=== PATIENT | male | born 1975 | race Caucasian/White ===

== ENCOUNTER 2017-03-29 11:20 | Emergency (ER) | payer MEDICAID, OTHER ==
[2017-03-29 11:38] VITALS: BP 129/88
--- NOTE | 2017-03-29 11:57 | EDM.PDOC ---
ED HPI GENERAL MEDICAL PROBLEM - General Chief Complaint: Skin Complaint Stated Complaint: RASH ALL OVER Time Seen by Provider: 03/29/17 11:30 Source of Information: Reports: Patient History Limitations: Reports: No Limitations - History of Present Illness INITIAL COMMENTS - FREE TEXT/NARRATIVE: Sore throat, hard to swallow for past 3 days. Unsure of fever. Ibuprofen will help for 'just a little bit' after taking. Also a fine, red rash on the arms and trunk for the same time period. No sick contacts or exposure to strep pt is aware of. Mild stomach upset from ibuprofen. Duration: Waxing/Waning Location: Reports: Neck, Abdomen, Upper Extremity, Left, Upper Extremity, Right Improves with: Reports: Medication Associated Symptoms: Reports: Cough, Headaches, Rash - Related Data Allergies Allergy/AdvReac Type Severity Reaction Status Date / Time Penicillins Allergy Abdominal Verified 03/29/17 11:32 Pain Home Meds: Home Meds NK [No Known Home Meds] 03/29/17 [History] Past Medical History - Past Health History Medical/Surgical History: Denies Medical/Surgical History Social & Family History - Tobacco Use Smoking Status *Q: Current Every Day Smoker Years of Tobacco use: 22 Packs/Tins Daily: 0.1 ED ROS GENERAL - Review of Systems Review Of Systems: ROS reveals no pertinent complaints other than HPI. ED EXAM, SKIN/RASH Exam: See Below Exam Limited By: No Limitations General Appearance: Alert, WD/WN, No Apparent Distress Ears: Normal External Exam, Normal Canal, Hearing Grossly Normal, Normal TMs Nose: Normal Inspection, Normal Mucosa Throat/Mouth: Normal Lips, Normal Voice, Other (diffuse redness of the posterior oropharynx with petichae on the palate.) Head: Atraumatic Neck: Normal Inspection, Supple, Full Range of Motion, Lymphadenopathy (R), Lymphadenopathy (L) Respiratory/Chest: No Respiratory Distress, Lungs Clear, Normal Breath Sounds Cardiovascular: Regular Rate, Rhythm Back Exam: Full Range of Motion Extremities: Other (fine, red rough rash scattered from wrists to upper arms. ) Psychiatric: Normal Affect, Normal Mood Skin: Warm, Dry, Rash (as above on extremities and also present on back and abdomen.) Associated features: No: Warmth, Induration, Weeping Course - Vital Signs Last Recorded V/S: Last Vital Signs Temp 36.6 C 03/29/17 11:36 Pulse 80 03/29/17 11:36 Resp 14 03/29/17 11:36 BP 129/88 03/29/17 11:36 Pulse Ox 96 03/29/17 11:36 - Orders/Labs/Meds Orders: Active Orders 24 hr Category Date Time Status CULTURE STREP A CONFIRMATION [RM] Stat Lab 03/29/17 11:33 Results STREP SCRN A RAPID W CULT CONF [RM] Stat Lab 03/29/17 11:33 Results Departure - Departure Time of Disposition: 11:56 Disposition: Home, Self-Care 01 Condition: good Clinical Impression: Sore throat, Rash and nonspecific skin eruption - Discharge Information Instructions: Sore Throat, [id number] Referrals: PCP,None [Primary Care Provider] - Forms: ED Department Discharge Additional Instructions: 1. Strep culture is pending. You may use benadryl as needed for itching. 2. Zithromax 500mg by mouth daily, eat prior to taking. 3. Work excuse for 03/29/17 provided. 4. Followup as needed. - Problem List & Annotations (1) Rash and nonspecific skin eruption SNOMED Code(s): 390402155, 781886940 Code(s): R21 - RASH AND OTHER NONSPECIFIC SKIN ERUPTION Status: Acute Priority: Medium Current Visit: Yes (2) Sore throat SNOMED Code(s): 165100954 Code(s): J02.9 - ACUTE PHARYNGITIS, UNSPECIFIED Status: Acute Priority: Medium Current Visit: Yes - Problem List Review Problem List Initiated/Reviewed/Updated: Yes - My Orders Last 24 Hours: My Active Orders 03/29/17 11:33 CULTURE STREP A CONFIRMATION [RM] Stat STREP SCRN A RAPID W CULT CONF [RM] Stat - Assessment/Plan Last 24 Hours: My Active Orders 03/29/17 11:33 CULTURE STREP A CONFIRMATION [RM] Stat STREP SCRN A RAPID W CULT CONF [RM] Stat
== END 2017-03-29 12:08 | disposition home or self-care (01) ==
LOC: JP.ED 11:20
DX: J02.9 Acute pharyngitis, unspecified (principal); R21 Rash and other nonspecific skin eruption; F17.210 Nicotine dependence, cigarettes, uncomplicated; Z88.0 Allergy status to penicillin
CPT/HCPCS: 87081; 87430; 99283

== ENCOUNTER 2017-05-03 16:06 | Emergency (ER) | payer MEDICAID, OTHER ==
[2017-05-03 16:50] VITALS: BP 138/84
--- NOTE | 2017-05-03 18:03 | EDM.PDOC ---
ED HPI GENERAL MEDICAL PROBLEM - General Chief Complaint: Skin Complaint Stated Complaint: RASH Time Seen by Provider: 05/03/17 16:56 Source of Information: Reports: Patient, RN Notes Reviewed History Limitations: Reports: No Limitations - History of Present Illness INITIAL COMMENTS - FREE TEXT/NARRATIVE: 42-year-old gentleman presents emergency department today with concern of a rash he has had of the rash in varying degrees over the last month or so initially did have a sore throat that has resolved has had fevers with night sweats over the last month or so the fevers have resolved within the last days. He did admit to unprotected intercourse anal with a male about a month and a half prior he does not have a primary care physician unknown HIV status. Also admits to having a sore inner aspect of his rectum he also states this has resolved denies any pain is discharge or ulcers on his penis denies Pain Score (Numeric/FACES): 0 - Related Data Allergies Allergy/AdvReac Type Severity Reaction Status Date / Time Penicillins Allergy Abdominal Verified 05/03/17 16:50 Pain Home Meds: Home Meds NK [No Known Home Meds] 03/29/17 [History] Past Medical History - Past Health History Medical/Surgical History: Denies Medical/Surgical History Social & Family History - Tobacco Use Smoking Status *Q: Current Every Day Smoker Years of Tobacco use: 20 Packs/Tins Daily: 1 - Recreational Drug Use Recreational Drug Use: No ED ROS GENERAL - Review of Systems Review Of Systems: See Below Constitutional: Reports: Fever, Chills, Night Sweats HEENT: Reports: No Symptoms Respiratory: Reports: No Symptoms Cardiovascular: Reports: No Symptoms GI/Abdominal: Reports: Other (Rectal sore no resolved) : Reports: No Symptoms Musculoskeletal: Reports: No Symptoms Skin: Reports: Rash Neurological: Reports: No Symptoms ED EXAM, SKIN/RASH Exam: See Below Exam Limited By: No Limitations General Appearance: Alert, WD/WN, No Apparent Distress Respiratory/Chest: No Respiratory Distress Skin: Warm, Dry, Rash, Other (Rashes viral-like in nature consistent with a viral exanthem there is no rash noted on the palmar surface of the hands or the soles of feet) Location, Skin: Chest, Abdomen, Back, Upper Extremity, Right, Upper Extremity, Left, Lower Extremity, Right, Lower Extremity, Left. No: Palms, Soles Characteristics: Macular, Patchy Course - Vital Signs Last Recorded V/S: Last Vital Signs Temp 99.3 F 05/03/17 16:49 Pulse 118 H 05/03/17 16:49 Resp 14 05/03/17 16:49 BP 138/84 05/03/17 16:49 Pulse Ox 98 05/03/17 16:49 - Orders/Labs/Meds Orders: Active Orders 24 hr Category Date Time Status CBC WITH AUTO DIFF [HEME] Urgent Lab 05/03/17 18:46 Ordered CHLAMYDIA,AND GC BY APTIMA Stat Lab 05/03/17 18:35 Received HEPATITIS PANEL,ACUTE [REF] Stat Lab 05/03/17 18:03 Received HIV 1/2 AB RFLX TO SUPPL [REF] Urgent Lab 05/03/17 18:34 Received RPR-TREP PALLIDIUM AB,REFLEX [REF] Stat Lab 05/03/17 18:03 Received Labs: Laboratory Tests 05/03/17 Range/Units 18:03 HIV-1 Ab Rapid Screen Non-reactive (NON-REACT.) Departure - Departure Time of Disposition: 18:47 Disposition: Home, Self-Care 01 Condition: Good Clinical Impression: Rash and nonspecific skin eruption - Discharge Information Forms: ED Department Discharge Additional Instructions: Please followup with your primary care provider in 5-7 days if not better, please call return to the emergency department with worsening of symptoms. - My Orders Last 24 Hours: My Active Orders 05/03/17 18:03 HEPATITIS PANEL,ACUTE [REF] Stat RPR-TREP PALLIDIUM AB,REFLEX [REF] Stat 05/03/17 18:34 HIV 1/2 AB RFLX TO SUPPL [REF] Urgent 05/03/17 18:35 CHLAMYDIA,AND GC BY APTIMA Stat 05/03/17 18:46 CBC WITH AUTO DIFF [HEME] Urgent - Assessment/Plan Last 24 Hours: My Active Orders 05/03/17 18:03 HEPATITIS PANEL,ACUTE [REF] Stat RPR-TREP PALLIDIUM AB,REFLEX [REF] Stat 05/03/17 18:34 HIV 1/2 AB RFLX TO SUPPL [REF] Urgent 05/03/17 18:35 CHLAMYDIA,AND GC BY APTIMA Stat 05/03/17 18:46 CBC WITH AUTO DIFF [HEME] Urgent Plan: Assessment Acuity = acute Site and laterality = nonspecific rash consistent with a viral exanthem complicated in a patient with history of unprotected male anal intercourse Etiology = unclear etiology Manifestations = rectal sore now resolved Location of injury = home Lab values = rapid HIV was negative, reflux HIV, hepatitis B and C, chlamydia and gonorrhea, syphilis all pending Plan Recommend establish primary care for further evaluation and treatment Patient was in agreement with the plan all questions were answered, they were instructed to return to the emergency department or call for worsening symptoms. This note was dictated using [employer] voice recognition software please call with any questions.
== END 2017-05-03 18:55 | disposition home or self-care (01) ==
LOC: JP.ED 16:06
DX: R21 Rash and other nonspecific skin eruption (principal); F17.210 Nicotine dependence, cigarettes, uncomplicated; Z88.0 Allergy status to penicillin
CPT/HCPCS: 36415; 80074; 85025; 86592; 86780; 87389; 87449; 87491; 87591; 99282; 99283

== ENCOUNTER 2018-08-11 18:19 | Emergency (ER) | payer SELFPAY ==
[2018-08-11 18:32] VITALS: BP 141/92
[2018-08-11] MEDS ORDERED: Cyclobenzaprine 10 MG Tab PO ONE (19:02)
[2018-08-11] MEDS ORDERED: Ketorolac 60 MG/2 ML SDV IM ONE (19:02)
[2018-08-11] MEDS ORDERED: Acetaminophen/oxyCODONE 325-5 MG Tab PO ONE (19:03)
--- NOTE | 2018-08-11 19:11 | EDM.PDOC ---
ED HPI GENERAL MEDICAL PROBLEM - General Chief Complaint: Back Pain or Injury Stated Complaint: BACK PAIN Time Seen by Provider: 08/11/18 19:05 Source of Information: Reports: Patient History Limitations: Reports: No Limitations - History of Present Illness INITIAL COMMENTS - FREE TEXT/NARRATIVE: pt arrived with pain in his lower back. He states this started about 1 month ago and it has gotten progrssively worse. Onset: Gradual, Other ( This has gotten progrssively worse. He does work at [employer] and he does do alot of lifting. ) Duration: Day(s):, Getting Worse Location: Reports: Back, Other (pt had no injury. ) Associated Symptoms: Reports: No Other Symptoms Lower Back Pain Score (Numeric/FACES): 10 - Related Data Allergies Allergy/AdvReac Type Severity Reaction Status Date / Time Penicillins Allergy Abdominal Verified 08/11/18 18:37 Pain Home Meds: Home Meds NK [No Known Home Meds] 03/29/17 [History] Past Medical History - Past Health History Medical/Surgical History: Denies Medical/Surgical History Musculoskeletal History: Reports: Back Pain, Chronic Psychiatric History: Reports: Anxiety, Depression - Infectious Disease History Infectious Disease History: Reports: Chicken Pox, Measles - Past Surgical History Head Surgeries/Procedures: Reports: None Musculoskeletal Surgical History: Reports: None Social & Family History - Tobacco Use Smoking Status *Q: Current Every Day Smoker Years of Tobacco use: 20 Packs/Tins Daily: 1 Used Tobacco, but Quit: No - Caffeine Use Caffeine Use: Reports: Energy Drinks, Tea - Recreational Drug Use Recreational Drug Use: Yes Drug Use in Last 12 Months: Yes Recreational Drug Type: Reports: Marijuana/Hashish Recreational Drug Use Frequency: Rarely ED ROS GENERAL - Review of Systems Review Of Systems: See Below Constitutional: Reports: No Symptoms HEENT: Reports: No Symptoms Respiratory: Reports: No Symptoms Cardiovascular: Reports: No Symptoms Endocrine: Reports: No Symptoms GI/Abdominal: Reports: No Symptoms : Reports: No Symptoms Musculoskeletal: Reports: Other (pain in lower ) Skin: Reports: No Symptoms ED EXAM,LOWER BACK PAIN/INJURY - Physical Exam Exam: See Below Text/Narrative:: pt arrived with pain in his lower back which has gradually gotten worse. 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 That change occured about 6 weeks ago. He began to have the pain about 1 month ago. Exam Limited By: No Limitations General Appearance: Alert, Anxious, Moderate Distress Ears: Normal TMs Nose: Normal Inspection Throat/Mouth: Normal Inspection Head: Atraumatic Neck: Normal Inspection Respiratory/Chest: No Respiratory Distress Cardiovascular: Regular Rate, Rhythm GI/Abdominal: Soft, Non-Tender (Male) Exam: Deferred Rectal (Males) Exam: Deferred Back Exam: Paraspinal Tenderness, Other (pt is tender in the paraspinous area in the lower back) Extremities: Normal Inspection Neurological: Alert, Oriented x 3 Psychiatric: Anxious Course - Vital Signs Last Recorded V/S: Last Vital Signs Temp 35.5 C 08/11/18 18:41 Pulse 68 08/11/18 18:41 Resp 16 08/11/18 18:41 BP 141/92 H 08/11/18 18:41 Pulse Ox 100 08/11/18 18:41 - Orders/Labs/Meds Orders: Active Orders 24 hr Category Date Time Status Lumbar Spine Min 4V [CR] Stat Exams 08/11/18 19:03 Taken Labs: Laboratory Tests 08/11/18 08/11/18 08/11/18 Range/Units 19:07 19:15 19:15 WBC 10.7 (4.5-11.0) K/uL RBC 5.07 (4.30-5.90) M/uL Hgb 15.2 H (12.0-15.0) g/dL Hct 44.3 (40.0-54.0) % MCV 87 (80-98) fL MCH 30 (27-31) pg MCHC 34 (32-36) % Plt Count 371 (150-400) K/uL Neut % (Auto) 49 (36-66) % Lymph % (Auto) 36 (24-44) % [place] % (Auto) 8 H (2-6) % Eos % (Auto) 6 H (2-4) % Baso % (Auto) 1 (0-1) % C-Reactive Protein 0.09 (0.0-0.3) mg/dL Urine Color Yellow Urine Appearance Clear Urine pH 6.0 (4.5-8.0) Ur Specific [place] 1.015 (1.008-1.030) Urine Protein Negative (NEGATIVE) mg/dL Urine Glucose (UA) Normal (NEGATIVE) mg/dL Urine Ketones Negative (NEGATIVE) mg/dL Urine Occult Blood Negative (NEGATIVE) Urine Nitrite Negative (NEGAITVE) Urine Bilirubin Negative (NEGATIVE) Urine Urobilinogen Normal (NORMAL) mg/dL Ur Leukocyte Esterase Negative (NEGATIVE) Urine RBC 0-5 (0-5) Urine WBC 0-5 (0-5) Ur Epithelial Cells Rare Amorphous Sediment Not seen Urine Bacteria Not seen Urine Mucus Not seen Meds: Medications Discontinued Medications Generic Name Dose Route Start Last Admin Trade Name Angela PRN Reason Stop Dose Admin Cyclobenzaprine HCl 10 mg 08/11/18 19:02 08/11/18 19:27 Flexeril PO 08/11/18 19:03 10 mg ONETIME ONE Administration Ketorolac Tromethamine 60 mg 08/11/18 19:02 08/11/18 19:28 Toradol IM 08/11/18 19:03 60 mg ONETIME ONE Administration Oxycodone/Acetaminophen 1 tab 08/11/18 19:03 08/11/18 19:27 Percocet 325-5 Mg PO 08/11/18 19:04 1 tab ONETIME ONE Administration - Re-Assessments/Exams Free Text/Narrative Re-Assessment/Exam: 08/11/18 20:09 xrays show good interspaces and good alignment. His lab work was normal. 08/11/18 20:17 he was given torodol 60mg im and percocet 5/325/ He is quite comfortable at this time. Departure - Departure Time of Disposition: 20:07 Disposition: Home, Self-Care 01 Condition: Fair Clinical Impression: Lumbar paraspinal muscle spasm - Discharge Information Instructions: Muscle Cramps and Spasms, [id number] Referrals: PCP,None [Primary Care Provider] - Forms: ED Department Discharge Care Plan Goals: soak in a tub, moist warm packs to the back, avoid lifting as much as possible, no work for 2 days, flexeril 10mg hs and 1/2 tab qam, tramodol 50mg q6h for pain. both tramodol and flexeril can cause drowiness. - My Orders Last 24 Hours: My Active Orders 08/11/18 19:03 Lumbar Spine Min 4V [CR] Stat - Assessment/Plan Last 24 Hours: My Active Orders 08/11/18 19:03 Lumbar Spine Min 4V [CR] Stat
--- NOTE | 2018-08-12 08:36 | CR ---
Lumbar Spine Min 4V CLINICAL HISTORY: Back pain FINDINGS: There are 5 lumbar-type vertebrae. The vertebral body heights are maintained. Disc spaces a re preserved. Alignment is maintained. IMPRESSION: No fracture or subluxation
== END 2018-08-11 20:40 | disposition home or self-care (01) ==
LOC: JP.ED 18:19
DX: M62.830 Muscle spasm of back (principal); F41.9 Anxiety disorder, unspecified; F32.9 Major depressive disorder, single episode, unspecified; F17.210 Nicotine dependence, cigarettes, uncomplicated; Z88.0 Allergy status to penicillin; Z79.899 Other long term (current) drug therapy
CPT/HCPCS: 36415; 72110; 81001; 85025; 86140; 96372; 99284; A9270; J1885

== ENCOUNTER 2018-11-27 23:59 | Emergency (ER) | payer MEDICAID, OTHER ==
[2018-11-28 00:36] VITALS: BP 143/87
--- NOTE | 2018-11-28 00:57 | EDM.PDOC ---
ED HPI GENERAL MEDICAL PROBLEM - General Chief Complaint: Back Pain or Injury Stated Complaint: BACK PAIN Time Seen by Provider: 11/28/18 00:35 Source of Information: Reports: Patient History Limitations: Reports: No Limitations - History of Present Illness INITIAL COMMENTS - FREE TEXT/NARRATIVE: 43-year-old male with thoracic and lower back tightness and pain for the past 4 days. No neurologic symptoms. No specific injury. He had similar discomfort several months ago and it resolved spontaneously. He thinks it has something to do with "stress". He is very sensitive to medications and when he takes ibuprofen it makes him sick. The medication he received several months ago worked appropriately Onset: Gradual Duration: Day(s): (4 days) back pain Pain Score (Numeric/FACES): 12 - Related Data Allergies Allergy/AdvReac Type Severity Reaction Status Date / Time Penicillins Allergy Abdominal Verified 11/28/18 00:25 Pain Home Meds: Home Meds NK [No Known Home Meds] 03/29/17 [History] Past Medical History - Past Health History Medical/Surgical History: Denies Medical/Surgical History Gastrointestinal History: Reports: GERD Musculoskeletal History: Reports: Back Pain, Chronic Psychiatric History: Reports: Anxiety, Depression - Infectious Disease History Infectious Disease History: Reports: Measles - Past Surgical History Head Surgeries/Procedures: Reports: None HEENT Surgical History: Reports: REINA Social & Family History - Tobacco Use Smoking Status *Q: Current Every Day Smoker Years of Tobacco use: 20 Packs/Tins Daily: 0.5 - Caffeine Use Caffeine Use: Reports: Coffee, Energy Drinks, Soda, Tea - Recreational Drug Use Recreational Drug Use: No ED ROS GENERAL - Review of Systems Review Of Systems: See Below Constitutional: Denies: Fever, Chills Respiratory: Denies: Shortness of Breath Cardiovascular: Denies: Chest Pain GI/Abdominal: Reports: Nausea. Denies: Abdominal Pain Skin: Reports: No Symptoms Neurological: Denies: Headache Psychiatric: Reports: No Symptoms ED EXAM,LOWER BACK PAIN/INJURY - Physical Exam Exam: See Below Exam Limited By: No Limitations General Appearance: Alert, No Apparent Distress Respiratory/Chest: No Respiratory Distress, Lungs Clear Cardiovascular: Regular Rate, Rhythm Back Exam: Paraspinal Tenderness (Patient has muscle tightness and paraspinal tenderness in the lower thoracic spine and lumbar area, no vertebral tenderness) Course - Vital Signs Last Recorded V/S: Last Vital Signs Temp 97.9 F 11/28/18 00:36 Pulse 66 11/28/18 00:36 Resp 16 11/28/18 00:36 BP 143/87 H 11/28/18 00:36 Pulse Ox 98 11/28/18 00:36 - Re-Assessments/Exams Free Text/Narrative Re-Assessment/Exam: 11/28/18 00:56 Reviewed his records and he was prescribed Flexeril and tramadol several months ago. He was given refills of these, #15 each and should increase activity as tolerated. Recheck next week if not improving satisfactorily. Departure - Departure Time of Disposition: 01:02 Disposition: Home, Self-Care 01 Condition: Good Clinical Impression: Lumbar paraspinal muscle spasm - Discharge Information Instructions: Back Pain, Adult, [id number] Referrals: PCP,None [Primary Care Provider] - Forms: ED Department Discharge Care Plan Goals: Use medications as directed and increase activity as tolerated. Recheck next week if not improving satisfactorily.
== END 2018-11-28 01:02 | disposition home or self-care (01) ==
LOC: JP.ED 23:59
DX: M62.830 Muscle spasm of back (principal); F17.210 Nicotine dependence, cigarettes, uncomplicated; Z88.0 Allergy status to penicillin
CPT/HCPCS: 99283

== ENCOUNTER 2019-12-12 16:11 | Emergency (ER) | payer SELFPAY ==
[2019-12-12 16:29] VITALS: BP 120/79; PULSE 100
--- NOTE | 2019-12-12 16:41 | EDM.PDOC ---
ED HPI GENERAL MEDICAL PROBLEM - General Chief Complaint: Skin Complaint Stated Complaint: RASH Time Seen by Provider: 12/12/19 16:25 Source of Information: Reports: Patient, RN History Limitations: Reports: No Limitations - History of Present Illness INITIAL COMMENTS - FREE TEXT/NARRATIVE: 44 yo male presents with a pruritic rash that has been getting worse over the past couple of days. No other sx's. No new meds. Does not have a family doctor. Has been taking topical Benedryl per his report without benefit. No one at his home has a rash. It started in his groin bilaterally and spread. 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) (see HPI) - Related Data Allergies Allergy/AdvReac Type Severity Reaction Status Date / Time Penicillins Allergy Abdominal Verified 12/12/19 16:21 Pain Home Meds: Home Meds NK [No Known Home Meds] 03/29/17 [History] Past Medical History - Past Health History Medical/Surgical History: Denies Medical/Surgical History Gastrointestinal History: Reports: GERD Musculoskeletal History: Reports: Back Pain, Chronic Psychiatric History: Reports: Anxiety, Depression - Infectious Disease History Infectious Disease History: Reports: Measles - Past Surgical History Head Surgeries/Procedures: Reports: None HEENT Surgical History: Reports: REINA Social & Family History - Tobacco Use Smoking Status *Q: Current Every Day Smoker Years of Tobacco use: 20 Packs/Tins Daily: 0.5 - Caffeine Use Caffeine Use: Reports: Coffee, Energy Drinks, Soda, Tea - Recreational Drug Use Recreational Drug Use: Yes Recreational Drug Type: Reports: Marijuana/Hashish Recreational Drug Use Frequency: Rarely ED ROS GENERAL - Review of Systems Review Of Systems: See Below Constitutional: Reports: No Symptoms HEENT: Reports: No Symptoms Respiratory: Reports: No Symptoms Cardiovascular: Reports: No Symptoms GI/Abdominal: Reports: No Symptoms : Reports: No Symptoms Musculoskeletal: Reports: No Symptoms Skin: Reports: Pruritis, Rash, Erythema. Denies: Bruising, Urticaria Neurological: Reports: No Symptoms ED EXAM, SKIN/RASH Exam: See Below Exam Limited By: No Limitations General Appearance: Alert, WD/WN, No Apparent Distress Eye Exam: Bilateral Eye: Normal Inspection Ears: Normal External Exam, Normal Canal, Hearing Grossly Normal Nose: Normal Inspection, No Blood Throat/Mouth: Normal Inspection, Normal Lips, Normal Oropharynx, Normal Voice, No Airway Compromise Head: Atraumatic, Normocephalic Neck: Normal Inspection, Non-Tender Respiratory/Chest: No Respiratory Distress, Lungs Clear, Normal Breath Sounds, No Accessory Muscle Use Cardiovascular: Regular Rate, Rhythm, No Edema Extremities: Normal Inspection Neurological: Alert, Oriented, CN II-XII Intact, Normal Cognition, No Motor/ Sensory Deficits Psychiatric: Normal Affect, Normal Mood Skin: Warm, Dry, Intact, Erythema, Rash (on extrems and groin, more confluent in groin. Small papules in various areas. Not hives. ) Location, Skin: Upper Extremity, Right, Upper Extremity, Left, Lower Extremity, Right, Lower Extremity, Left, Groin Characteristics: Papular, Fine, Erythematous. No: Linear, Lauar, Polycyclic, Vesicular, Bullous, Urticarial, Petechial, Necrotic Associated features: No: Warmth, Tenderness Course - Vital Signs Last Recorded V/S: Last Vital Signs Temp 36.6 C 12/12/19 16:22 Pulse 100 12/12/19 16:22 Resp 14 12/12/19 16:22 BP 120/79 12/12/19 16:22 Pulse Ox 100 12/12/19 16:22 Departure - Departure Time of Disposition: 16:42 Disposition: Home, Self-Care 01 Condition: Good Clinical Impression: Rash - Discharge Information *PRESCRIPTION DRUG MONITORING PROGRAM REVIEWED*: No *COPY OF PRESCRIPTION DRUG MONITORING REPORT IN PATIENT WILL: No Instructions: Rash Referrals: PCP,None [Primary Care Provider] - Additional Instructions: Take prednisone as directed until gone. Take diphenhydramine 50 mg every 6 hrs as needed for itching. Recheck in the clinic [facility]. Sepsis Event Note - Evaluation Sepsis Screening Result: No Definite Risk - Focused Exam Vital Signs: Vital Signs Temp Pulse Resp BP Pulse Ox 12/12/19 16:22 36.6 C 100 14 120/79 100 Date Exam was Performed: 12/12/19 Time Exam was Performed: 16:36
== END 2019-12-12 16:55 | disposition home or self-care (01) ==
LOC: JP.ED 16:11
DX: R21 Rash and other nonspecific skin eruption (principal); F17.210 Nicotine dependence, cigarettes, uncomplicated; Z88.0 Allergy status to penicillin
CPT/HCPCS: 99282; 99283

== ENCOUNTER 2020-01-12 22:18 | Emergency (ER) | payer MEDICAID ==
[2020-01-12 22:29] VITALS: BP 145/91; PULSE 107
--- NOTE | 2020-01-12 23:04 | EDM.PDOC ---
ED HPI GENERAL MEDICAL PROBLEM - General Chief Complaint: Skin Complaint Stated Complaint: RASH Time Seen by Provider: 01/12/20 22:45 Source of Information: Reports: Patient, Old Records, RN History Limitations: Reports: No Limitations - History of Present Illness INITIAL COMMENTS - FREE TEXT/NARRATIVE: 44 yo male presents with oral and penile/scrotal painful, somewhat itchy lesions. Says he was in the clinic and they told him it was scabies. He used the medication given and has not gotten better. Rather than return there when he didn't improve he comes to the ER. Has a pHx of syphilis in 05/03. Has had unprotected 'tran' sex recently before this all started. Onset: Gradual Duration: Week(s): (? 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) ("Scabies Medication") Groin Pain Score (Numeric/FACES): 4 - Related Data Allergies Allergy/AdvReac Type Severity Reaction Status Date / Time No Known Allergies Allergy Verified 01/12/20 22:33 Home Meds: Home Meds NK [No Known Home Meds] 01/12/20 [History] Past Medical History - Past Health History Medical/Surgical History: Denies Medical/Surgical History HEENT History: Reports: Glaucoma, Impaired Vision Gastrointestinal History: Reports: GERD Genitourinary History: Reports: STD Musculoskeletal History: Reports: Back Pain, Chronic Psychiatric History: Reports: Anxiety, Depression, OCD - Infectious Disease History Infectious Disease History: Reports: Chicken Pox - Past Surgical History Head Surgeries/Procedures: Reports: None HEENT Surgical History: Reports: LASIK Social & Family History - Tobacco Use Smoking Status *Q: Current Every Day Smoker Years of Tobacco use: 22 Packs/Tins Daily: 1 - Caffeine Use Caffeine Use: Reports: Coffee, Energy Drinks, Soda, Tea - Recreational Drug Use Recreational Drug Use: Yes Recreational Drug Type: Reports: Marijuana/Hashish Recreational Drug Use Frequency: Monthly Recreational Drug Last Use: 01/11/2020 ED ROS GENERAL - Review of Systems Review Of Systems: See Below Constitutional: Reports: No Symptoms HEENT: Reports: Other (oral ulcers on tongue and inner lower lip) Respiratory: Reports: No Symptoms Cardiovascular: Reports: No Symptoms GI/Abdominal: Reports: No Symptoms : Reports: Other (penile and scrotum lesions). Denies: Discharge Skin: Reports: Rash (ulcers on scrotum and penis), Lesions Neurological: Reports: No Symptoms ED EXAM, SKIN/RASH Exam: See Below Exam Limited By: No Limitations Eye Exam: Bilateral Eye: Normal Inspection Nose: Normal Inspection, No Blood Throat/Mouth: Other (ulcers on R lateral aspect of tongue and on mucosal surface of lower lip. ) Head: Atraumatic, Normocephalic Neck: Normal Inspection Skin: Warm, Dry, Other (multiple ulcerations on penis and scrotum. ) Location, Skin: Pelvis Characteristics: Other (ulcers) Associated features: Tenderness Course - Vital Signs Text/Narrative:: Got Rocephin 500 mg IM, Azithromycin 1000 mg po, and 2.4 million units of pen G benzathine IM Last Recorded V/S: Last Vital Signs Temp 36.7 C 01/12/20 22:36 Pulse 107 H 01/12/20 22:36 Resp 16 01/12/20 22:36 BP 145/91 H 01/12/20 22:36 Pulse Ox 98 01/12/20 22:36 - Orders/Labs/Meds Orders: Active Orders 24 hr Category Date Time Status CHLAMYDIA/GC AMPLIFICATION Routine Lab 01/12/20 23:20 Received PANEL [id number] (HIV AG/AB W RFX) Stat Lab 01/12/20 23:15 Received T PALLIDUM SCREENING CASCADE Routine Lab 01/12/20 23:15 Received Labs: Laboratory Tests 01/12/20 Range/Units 23:15 HIV-1 Ab Rapid Screen Reactive H (NON-REACT.) Meds: Medications Discontinued Medications Generic Name Dose Route Start Last Admin Trade Name Freq PRN Reason Stop Dose Admin Azithromycin 1,000 mg 01/12/20 23:25 Zithromax PO 01/12/20 23:26 ONETIME ONE Ceftriaxone Sodium 500 mg 01/12/20 23:26 Rocephin IM 01/12/20 23:27 ONETIME ONE Lidocaine HCl Confirm 01/12/20 23:30 Xylocaine-Mpf 1% Administered 01/12/20 23:31 Dose 5 ml .ROUTE .STK-MED ONE Penicillin G Benzathine 2.4 millunits 01/12/20 23:22 Bicillin L-A IM 01/12/20 23:23 ONETIME ONE Departure - Departure Time of Disposition: 23:57 Disposition: Home, Self-Care 01 Condition: Fair Clinical Impression: Male genital ulcer, Oral ulceration HIV (human immunodeficiency virus infection) Qualifiers: HIV symptom status: asymptomatic Qualified Code(s): Z21 - Asymptomatic human immunodeficiency virus [HIV] infection status - Discharge Information *PRESCRIPTION DRUG MONITORING PROGRAM REVIEWED*: Not Applicable *COPY OF PRESCRIPTION DRUG MONITORING REPORT IN PATIENT WILL: Not Applicable Referrals: PCP,None [Primary Care Provider] - Forms: ED Department Discharge Additional Instructions: Must use condoms until you have had a "test of cure". Follow up in the clinic no later than Friday to review outstanding test results. If you do not get better with today's treatment and all your tests are negative, you may need to be further evaluated for a condition called Behcet's Disease. All of your recent contacts will need to be tested to see if they have these infections. We will be reporting any positive tests from [facility] to the health department to help isolate and treat all contacts. Who ever you choose as your primary care provider will have to keep track of your CD4 counts and viral load to monitor your course of treatment. You will need to be started on the appropriate HIV medications [facility]. Unfortunately, we don't have these meds available through the [facility]. We did test your kidney function tonight which will be needed before starting any HIV meds, so let your provider know this has been done. Sepsis Event Note - Evaluation Sepsis Screening Result: No Definite Risk - Focused Exam Vital Signs: Vital Signs Temp Pulse Resp BP Pulse Ox 01/12/20 22:36 36.7 C 107 H 16 145/91 H 98 01/12/20 22:27 36.7 C 107 H 16 145/91 H 98 Date Exam was Performed: 01/12/20 Time Exam was Performed: 23:34 - My Orders Last 24 Hours: My Active Orders 01/12/20 23:15 PANEL [id number] (HIV AG/AB W RFX) Stat T PALLIDUM SCREENING CASCADE Routine 01/12/20 23:20 CHLAMYDIA/GC AMPLIFICATION Routine - Assessment/Plan Last 24 Hours: My Active Orders 01/12/20 23:15 PANEL [id number] (HIV AG/AB W RFX) Stat T PALLIDUM SCREENING CASCADE Routine 01/12/20 23:20 CHLAMYDIA/GC AMPLIFICATION Routine
[2020-01-12] MEDS ORDERED: Penicillin G Benzathine 1,200,000 Units/2 ML Syringe IM ONE (23:22)
[2020-01-12] MEDS ORDERED: Azithromycin 250 MG Tab PO ONE (23:25)
[2020-01-12] MEDS ORDERED: cefTRIAXone 500 MG Vial IM ONE (23:26)
[2020-01-14 10:11] LABS: HIV 1 AB Positive (Negative); HIV 2 AB Negative (Negative); HIV SCREEN 4TH GENERATION WRFX Reactive (Non Reactive); INTERPRETATION: HIV-1 Positive (.)
[2020-01-15 17:11] LABS: CHLAMYDIA TRACHOMATIS, NAA Negative (Negative); NEISSERIA GONORRHOEAE, NAA Negative (Negative)
[2020-01-18 07:11] LABS: RPR Reactive (Non Reactive); RPR, QUANT 1:32 (NonRea<1:1); T PALLIDUM ANTIBODIES Reactive (Non Reactive)
== END 2020-01-13 00:07 | disposition home or self-care (01) ==
LOC: JP.ED 22:18
DX: N50.89 Other specified disorders of the male genital organs (principal); N48.5 Ulcer of penis; K14.0 Glossitis; K13.0 Diseases of lips; F17.210 Nicotine dependence, cigarettes, uncomplicated; Z21 Asymptomatic human immunodeficiency virus [HIV] infection status
CPT/HCPCS: 80048; 86780; 87389; 87449; 87491; 87591; 96372; 99283; A9270; J0561; J0696; J2001; 36415

== ENCOUNTER 2020-04-16 15:26 | Emergency (ER) | payer MEDICAID ==
[2020-04-16 15:40] VITALS: BP 150/89; PULSE 78
--- NOTE | 2020-04-16 15:59 | EDM.PDOC ---
ED HPI GENERAL MEDICAL PROBLEM - General Chief Complaint: ENT Problem Stated Complaint: SWOLLEN GLAND Time Seen by Provider: 04/16/20 16:00 Source of Information: Reports: Patient - History of Present Illness INITIAL COMMENTS - FREE TEXT/NARRATIVE: Alberto present to ER for acute left anterior neck swelling which he noted this am. Patient was eating chips and noted difficulty swallowing. Patient feels like he has a piece of chip stuck under his tongue causing slight discomfort. Patient has been taking his HIV medications and follows up with [facility], next appointment April 26. Patient does not known WBC, ANC or viral load counts as they have not been drawn yet, as HIV is a new diagnosis for patient. Patient denies fever, chills sweats or systemic symptoms. Patient has two teeth in his left lower jaw that his dentist is hoping to pull or repair. Patient does not believe that the left lower jaw.neck swelling is due to dental concern today. - Related Data Allergies Allergy/AdvReac Type Severity Reaction Status Date / Time No Known Allergies Allergy Verified 04/16/20 15:43 Home Meds: Home Meds Biktarvy 1 tab PO DAILY 04/16/20 [History] Past Medical History - Past Health History Medical/Surgical History: Denies Medical/Surgical History HEENT History: Reports: Glaucoma, Impaired Vision Gastrointestinal History: Reports: GERD Genitourinary History: Reports: STD Musculoskeletal History: Reports: Back Pain, Chronic Psychiatric History: Reports: Anxiety, Depression, OCD - Infectious Disease History Infectious Disease History: Reports: Chicken Pox - Past Surgical History Head Surgeries/Procedures: Reports: None HEENT Surgical History: Reports: LASIK Social & Family History - Tobacco Use Smoking Status *Q: Current Every Day Smoker Years of Tobacco use: 23 Packs/Tins Daily: 0.5 - Caffeine Use Caffeine Use: Reports: Energy Drinks - Recreational Drug Use Recreational Drug Use: Yes Recreational Drug Type: Reports: Marijuana/Hashish Recreational Drug Use Frequency: Daily ED ROS ENT - Review of Systems Review Of Systems: Comprehensive ROS is negative, except as noted in HPI. ED EXAM, ENT - Physical Exam Exam: See Below Exam Limited By: No Limitations General Appearance: Alert, WD/WN, No Apparent Distress Eye Exam: Bilateral Eye: EOMI, Normal Inspection Ears: Normal External Exam, Normal Canal, Hearing Grossly Normal, Normal TMs Nose: Normal Inspection Mouth/Throat: Normal Gums, Normal Lips, Other (slight inflammed noted below tongue on left with visualized stone in salivary duct. ). No: Normal Teeth ( chipped tooth x 2 in left lwoer jaw. No pain to percussion of chipped teeth. Slight posterior gum swelling but no pain noted. ), Hoarse Voice Course - Vital Signs Last Recorded V/S: Last Vital Signs Temp 36.6 C 04/16/20 15:53 Pulse 78 04/16/20 15:53 Resp 16 04/16/20 15:53 BP 150/89 H 04/16/20 15:53 Pulse Ox 99 04/16/20 15:53 Departure - Departure Time of Disposition: 16:23 Disposition: Home, Self-Care 01 Clinical Impression: Parotid gland pain - Discharge Information Instructions: Parotitis Referrals: PCP,None [Primary Care Provider] - Forms: ED Department Discharge Additional Instructions: 1. Warm compress to area to improve blood flow. You may consider gently manipulating the stone to allow for improved passage. 2. Ibuprofen 600-800mg every 6 hours with food for pain, swelling and inflammation. 3. Sour candy, Lemon Drops (sugar free) to help promote salivary duct stone to be dislodged. 4. Continued current mediations, see specialist on April 26 as scheduled. 5. Call [facility] to set up an Primary care provider and ensure improvement of symptoms with treatment recommendations today. 6. Consider dental evaluation to address left lower chipped teeth which may be causing some pain. 7. Return to ER if concerns, changes new or worsening symptoms or concerns. Sepsis Event Note - Evaluation Sepsis Screening Result: No Definite Risk - Focused Exam Vital Signs: Vital Signs Temp Pulse Resp BP Pulse Ox 04/16/20 15:53 36.6 C 78 16 150/89 H 99 04/16/20 15:38 36.6 C 78 16 150/89 H 99 Date Exam was Performed: 04/16/20 Time Exam was Performed: 16:07 - Problem List & Annotations (1) HIV (human immunodeficiency virus infection) SNOMED Code(s): 63739379 Code(s): B20 - HUMAN IMMUNODEFICIENCY VIRUS [HIV] DISEASE Status: Chronic Current Visit: No Qualifiers: HIV symptom status: asymptomatic Qualified Code(s): Z21 - Asymptomatic human immunodeficiency virus [HIV] infection status (2) Parotid gland pain SNOMED Code(s): 79723619 Code(s): K11.8 - OTHER DISEASES OF SALIVARY GLANDS Status: Acute Current Visit: Yes
== END 2020-04-16 16:32 | disposition home or self-care (01) ==
LOC: JP.ED 15:26
DX: K11.8 Other diseases of salivary glands (principal); Z21 Asymptomatic human immunodeficiency virus [HIV] infection status; F17.210 Nicotine dependence, cigarettes, uncomplicated
CPT/HCPCS: 99283